=== PATIENT | female | born 1995 | race Caucasian/White ===

== ENCOUNTER → 2017-10-08 | Outpatient (CLI) | payer OTHER | END | disposition home or self-care (01) | LOC: C.LABSPEC 16:05 | PROVIDERS: ATTEND Physician Assistant | DX: N89.8 Other specified noninflammatory disorders of vagina (principal); T19.2XXA Foreign body in vulva and vagina, initial encounter; X58.XXXA Exposure to other specified factors, initial encounter ==

== ENCOUNTER 2025-11-14 07:42 | Inpatient (IN) ==
[2025-11-14] MEDS ORDERED: OXYTOCIN 30 UNITS/NSS 30 UNITS/500 ML BAG IV PRN (08:32)
[2025-11-14] MEDS ORDERED: LIDOCAINE 1% LOCAL 20 ML VIAL INFIL PRN (08:32)
[2025-11-14 08:56] LABS: Hematocrit (blood only) 37.5 % (37.0-47.0); Hemoglobin 13.1 g/dL (12.0-16.0); Mean Corpuscular Hemoglobin 30.6 pg (25.0-34.0); Mean Corpuscular Volume 87.6 fL (80.0-100.0); Platelet Count 188 K/uL (130-400); RDW Standard Deviation 43.8 fL (36.4-46.3); Red Blood Count 4.28 M/uL (4.20-5.40); White Blood Count 9.73 K/ul (4.8-10.8)
--- NOTE | 2025-11-14 08:58 | History & Physical Report ---
Date of Service November 14, 2025 Assessment & Plan (1) Encounter for induction of labor: Plan: Pt is a 30yo who presents for scheduled IOL for post-dates. Lazaro balloon able to be placed during cervical exam - //hi; will titrate pitocin up to [address] AROM when able Epidural PRN GBS neg, RH pos, RI Anticipate Admission and Anticipated Discharge Date Admission Date: November 14, 2025 History of Present Illness Chief Complaint: Scheduled induction of labor Primary Care Provider: Arturo Kennedy DO Patient is a 30yo who presents at 41w1d for scheduled induction of labor for post-dates. Pt doing well this morning, no interval concerns since visit yesterday. +FM; denies contractions, bleeding, or leaking fluid. uncomplicated - prior concern for LGA but most recent ultrasound with appropriate growth. Allergies Allergy/AdvReac Type Severity Reaction Status Date / Time No Known Allergies Allergy Verified 11/13/25 13:33 Home Medications Medication Instructions Recorded Confirmed Type [id number] oil PO 04/06/25 11/13/25 History [ Gummy] Patient History Medical History (Updated 11/14/25 @ 09:00 by Pamella Adames MD) Varicella vaccination Surgical History (Updated 04/06/25 @ 10:00 by Nirali Ac RN) No pertinent past surgical history Family History (Updated 04/06/25 @ 09:51 by Nirali Ac RN) Grandmother (Maternal) Diabetes Denies family history of Ovarian cancer Breast cancer Colorectal cancer Social History (Updated 04/06/25 @ 09:57 by Nirali Ac RN) Smoking Status: Never smoker Do You Dip or Chew Tobacco: No; Hx Alcohol Use: No Hx Substance Use: No marital status: marital status details: Jf Hernandes (28) [phone] Current Living Situation: Spouse Current Living Situation Comment: Lives with , no pets current occupational status: employed current occupation: Nurse How many Children do You have: 0 Review of Systems All systems reviewed & are unremarkable except as noted in HPI & below Physical Exam Constitutional: WD/WN, vitals as above healthy appearing Respiratory: normal respiratory effort Psychiatric: Orientation: alert and oriented x 3 Genitourinary: normal external appearance OB Exam Abdomen: + vertex Manual OB Exam: + cervical dilation fingertip, + cervical effacement 50% and + station high OB Exam Monitor Tracing: + external FHT monitor used, + external uterine monitor used and + category I Lazaro balloon placed in normal sterile fashion with cervical exam as above; balloon inflated with 40cc fluid. Pt tolerated well. Results & Data Vital Signs (Past 12 Hours) Vital Signs Pulse BP 11/14/25 08:15 81 131/80 Coding Level of Care Code None Diagnoses Encounter for induction of labor Z34.90
[2025-11-14] MEDS: LACTATED RINGER'S 1,000 ML IV PRN (09:34)
[2025-11-14] MEDS: OXYTOCIN 30 UNITS/NSS 30 UNITS/500 ML BAG IV PRN (09:34)
[2025-11-14] MEDS ORDERED: NALBUPHINE HCL INJ 10 MG/ML AMP IV PRN (17:00)
[2025-11-14] MEDS ORDERED: ROPIVACAINE 0.5% PF 5 MG/ML 20 ML VIAL EPI PRN (17:00)
[2025-11-14] MEDS ORDERED: LIDOCAINE 2% MPF LOCAL 5 ML VIAL EPI PRN (17:00)
[2025-11-14] MEDS ORDERED: NALOXONE HCL 1 MG in SODIUM CHLORIDE 0.9% 1,000 ML IV PRN (17:00)
[2025-11-14] MEDS ORDERED: ONDANSETRON INJ 2 MG/ML 2 ML VIAL IV PRN (17:00)
[2025-11-14] MEDS ORDERED: BUPIVACAINE 0.25% PF 30 ML VIAL EPI PRN (17:00)
[2025-11-14] MEDS ORDERED: SODIUM CHLORIDE 0.9% PF INJ 10 ML VIAL EPI PRN (17:00)
[2025-11-14] MEDS ORDERED: diphenhydrAMINE 50 MG/ML VIAL IV PRN (17:00)
[2025-11-14] MEDS ORDERED: NALOXONE HCL 0.4 MG/1 ML VIAL/CARP IV PRN (17:00)
--- NOTE | 2025-11-14 17:04 | Anesthesiology Consultation ---
Date of Service November 14, 2025 Assessment & Plan (1) Encounter for pre-operative examination: Chart Review Chart Review: Patient NOT seen in Pre Admission Testing and Acceptable Risk for Labor Epidural Consults Requested none History Height/Weight Height: 5 ft 4 in Weight: 79.379 kg Allergies Allergy/AdvReac Type Severity Reaction Status Date / Time No Known Allergies Allergy Verified 11/13/25 13:33 Medications Home Medications Medication Instructions Recorded Confirmed Last Taken vits no.124-ferrous fum 1 tab PO DAILY 11/14/25 11/14/25 Unknown 27 mg iron-folic acid 800 mcg tablet ( Vitamin) Active Medications Generic Name Dose Route Start Last Admin Trade Name Freq PRN Reason Stop Dose Admin Lactated Ringer's 1,000 mls @ 125 mls/hr 11/14/25 08:32 11/14/25 16:46 Lr IV 11/16/25 08:31 999 mls/hr .Q8H PRN Administration L&D Protocol Protocol Oxytocin 30 units in 500 mls @ 6 mls/hr 11/14/25 08:33 11/14/25 14:37 Pitocin 30 Units/Nss IV 11/16/25 08:32 0.36 units/hr .Q24H PRN 6 mls/hr Labor Induction/Augmentation Titration Protocol 0.36 UNITS/HR Past Medical History Medical History (Updated 11/14/25 @ 17:04 by Devendra Romeo MD) Encounter for pre-operative examination Varicella vaccination Exercise / Class Metabolic Activity II 4-5 Yardwork/Stairs/Walk up hill Past Family History Family History Grandmother (Maternal) Diabetes Denies family history of Ovarian cancer Breast cancer Colorectal cancer Past Surgical History Surgical History No pertinent past surgical history Social History Smoking Status: Never smoker Do You Dip or Chew Tobacco: No Hx Alcohol Use: No Hx Substance Use: No Physical Exam Vital Signs Last Vital Signs Temp 36.7 C 11/14/25 12:39 Pulse 94 H 11/14/25 17:33 Resp 18 11/14/25 12:39 BP 142/65 H 11/14/25 17:33 Pulse Ox 95 12/16/25 17:32 Testing Laboratory Results 11/14/25 08:43
[2025-11-14] MEDS: BUPIVACAINE 0.25% PF 30 ML VIAL EPI STA (17:29)
[2025-11-14] MEDS: LIDOCAINE 2%/EPINEPHRINE 1:200,000 20 ML PF EPI STA (17:29)
[2025-11-14] MEDS: BUPIVACAINE 0.25% PF 30 ML VIAL ONE (17:34)
[2025-11-14] MEDS: SODIUM CHLORIDE 0.9% PF INJ 10 ML VIAL EPI STA (17:35)
[2025-11-14] MEDS: fentANYL 2 MCG/ML BUPIVacaine 0.125%-NSS 100ML BAG ONE (17:35)
[2025-11-14] MEDS: SODIUM CHLORIDE 0.9% PF INJ 10 ML VIAL ONE (17:35)
[2025-11-14] MEDS: LIDOCAINE 2%/EPINEPHRINE 1:200,000 20 ML PF ONE (17:35)
[2025-11-14] MEDS: fentANYL 2 MCG/ML BUPIVacaine 0.125%-NSS 100ML BAG EPI PRN (17:49)
--- NOTE | 2025-11-14 18:24 | Labor Progress Brief Note ---
Date of Service November 14, 2025 Subjective Reason For Note: Routine Evaluation Doing well; balloon came out and now comfortable with epidural. Review of Systems All systems reviewed & are unremarkable except as noted in HPI & below Assessment & Plan (1) Encounter for induction of labor: Plan: Pt is a 30yo who presents for scheduled IOL for post-dates. Cvx 6-7/80/-2 - continue pit 2x2 s/p AROM s/p Epidural GBS neg, RH pos, RI Anticipate Admission and Anticipated Discharge Date Admission Date: November 14, 2025 Physical Exam Constitutional: WD/WN, vitals as above healthy appearing Respiratory: normal respiratory effort Psychiatric: Orientation: alert and oriented x 3 Genitourinary: normal external appearance OB Exam Abdomen: + vertex Manual OB Exam: + cervical dilation (6-7), + cervical effacement 80% and + station -2 OB Exam Monitor Tracing: + external FHT monitor used, + external uterine monitor used and + category I Results & Data Vital Signs (Past 12 Hours) Vital Signs Temp Pulse Resp BP Pulse Ox 11/14/25 18:21 88 93 11/14/25 18:17 93 H 94 11/14/25 18:12 87 96 11/14/25 18:10 86 130/80 11/14/25 18:07 97 H 95 11/14/25 18:02 90 94 11/14/25 17:57 84 95 11/14/25 17:52 95 H 128/79 95 11/14/25 17:50 85 124/68 11/14/25 17:48 76 124/58 L 11/14/25 17:47 86 95 11/14/25 17:46 176 H 172/93 H 11/14/25 17:44 84 122/70 11/14/25 17:42 96 11/14/25 17:42 88 11/14/25 17:42 83 138/91 11/14/25 17:40 82 134/68 11/14/25 17:38 84 129/63 11/14/25 17:37 85 95 11/14/25 17:36 92 H 129/64 11/14/25 17:34 92 H 134/56 L 11/14/25 17:33 94 H 142/65 H 11/14/25 17:32 91 H 123/6 L 95 11/14/25 17:30 92 H 116/86 11/14/25 17:28 98 H 119/74 11/14/25 17:27 98 H 95 11/14/25 17:22 113 H 96 11/14/25 17:17 114 H 96 11/14/25 17:12 103 H 96 11/14/25 17:11 96 H 94 11/14/25 17:06 103 H 95 11/14/25 17:05 92 H 143/75 H 11/14/25 16:05 18 11/14/25 16:05 18 11/14/25 12:39 36.7 C 81 18 128/73 11/14/25 08:15 36.7 C 20 11/14/25 08:15 81 131/80 Coding Level of Care Code None Diagnoses Encounter for induction of labor Z34.90
[2025-11-14] MEDS: miSOPROStol 25 MCG TAB PV ONE (18:43)
[2025-11-14] MEDS: ACETAMINOPHEN 325 MG TAB PO PRN (22:41)
[2025-11-14] MEDS ORDERED: NURSING L&D Epidural Breakthrough Pain Update ONE (22:45)
--- NOTE | 2025-11-15 04:10 | Anesthesia Procedure Note ---
Date of Service November 15, 2025 Anesthesia Epidural Re-Dose Vital Signs Temp Pulse Resp BP Pulse Ox 36.8 C 97 H 18 123/63 95 11/15/25 02:10 11/15/25 04:08 11/15/25 02:10 11/15/25 04:08 11/15/25 04:07 Notes Pain Intensity: 5 Dilatation (cm): 7.0 Effacement (%): 90 Called by nursing to evaluate epidural as the patient is having increased pain. The epidural was re-dosed with the following medications (all medications via epidural route) after negative aspiration of the epidural catheter for CSF/HEME. 5ml of 2% LIdocaine mixed with 5ml of 0.5% ropivicaine in divided doses. After Epidural Re-Dose Mental Status: alert / awake / arousable Pain: improving with treatment Airway Patency, RR, SpO2: stable & adequate BP & HR: stable & adequate
[2025-11-15] MEDS ORDERED: ceFAZolin 3000MG 3,000 MG/72.5 ML BAG IV ONE (06:00)
--- NOTE | 2025-11-15 08:43 | Labor Progress Brief Note ---
Date of Service November 15, 2025 Subjective 30yo with SIUP @ 41w2d, . Course of IOL reviewed. Patient has epidural but presently c/o significant pain with contractions. She is concerned as she reports that her twin sister got to 9cm and had a , and this baby is known to be LGA. Assessment & Plan (1) Encounter for induction of labor: Plan: Suspect CPD at this point and recommended . Patient and FOB agreeable. Consent completed, will deliver as soon as room available for surgery, and meanwhile pit off. Anesthesiologist discussing options with patient in room now. Admission and Anticipated Discharge Date Admission Date: November 14, 2025 Physical Exam Genitourinary: Cervix 5cm, 90% with puffiness / edema worst at 12 o'clock, station 0 but with significant molding and caput that reaches below station. Bricelyn Q2 with adequate MVU FHT 160 mod abiel +acc -dec Results & Data Vital Signs (Past 12 Hours) Vital Signs Temp Pulse Resp BP Pulse Ox O2 Del Method 11/15/25 08:35 88 136/83 11/15/25 08:32 79 95 11/15/25 08:27 78 95 11/15/25 08:22 79 94 11/15/25 08:21 78 160/91 H 11/15/25 08:17 78 95 11/15/25 08:12 74 95 11/15/25 08:07 75 94 11/15/25 08:05 92 H 135/89 11/15/25 08:02 83 94 11/15/25 07:57 109 H 95 11/15/25 07:52 87 97 11/15/25 07:49 85 122/71 11/15/25 07:47 91 H 95 11/15/25 07:42 82 95 11/15/25 07:37 92 H 94 11/15/25 07:36 Room Air 11/15/25 07:36 85 120/63 11/15/25 07:32 89 95 11/15/25 07:30 18 11/15/25 07:30 18 11/15/25 07:27 85 94 11/15/25 07:22 87 94 11/15/25 07:20 95 H 106/75 11/15/25 07:17 104 H 96 11/15/25 07:12 114 H 95 11/15/25 07:07 86 95 11/15/25 07:05 86 132/78 11/15/25 07:02 86 96 11/15/25 07:00 18 11/15/25 07:00 18 11/15/25 06:57 86 96 11/15/25 06:52 91 H 95 11/15/25 06:49 82 133/71 11/15/25 06:47 88 96 11/15/25 06:42 92 H 95 11/15/25 06:37 82 95 11/15/25 06:34 86 134/65 11/15/25 06:32 102 H 94 11/15/25 06:30 18 11/15/25 06:30 18 11/15/25 06:27 94 H 94 11/15/25 06:22 95 H 95 11/15/25 06:21 96 H 124/72 11/15/25 06:17 100 H 95 11/15/25 06:12 83 95 11/15/25 06:07 83 95 11/15/25 06:04 82 137/78 11/15/25 06:02 87 96 11/15/25 06:00 18 11/15/25 06:00 18 11/15/25 05:57 77 95 11/15/25 05:52 78 94 11/15/25 05:49 79 136/67 11/15/25 05:47 77 94 11/15/25 05:42 77 96 11/15/25 05:37 77 95 11/15/25 05:35 98.2 F 11/15/25 05:34 80 124/63 11/15/25 05:32 85 96 11/15/25 05:27 82 95 11/15/25 05:22 85 95 11/15/25 05:20 83 129/70 11/15/25 05:17 87 95 11/15/25 05:12 86 95 11/15/25 05:07 89 94 11/15/25 05:06 96 H 120/78 11/15/25 05:02 90 94 11/15/25 05:00 18 11/15/25 05:00 18 11/15/25 04:57 103 H 95 11/15/25 04:52 99 H 94 11/15/25 04:50 81 126/73 11/15/25 04:47 78 95 11/15/25 04:42 82 95 11/15/25 04:37 81 94 11/15/25 04:32 86 129/77 93 11/15/25 04:30 18 11/15/25 04:30 18 11/15/25 04:27 75 95 11/15/25 04:26 78 122/72 11/15/25 04:22 80 94 11/15/25 04:20 83 133/76 11/15/25 04:18 95 H 134/77 11/15/25 04:17 89 95 11/15/25 04:16 90 126/70 11/15/25 04:14 100 H 125/70 11/15/25 04:12 114 H 95 11/15/25 04:10 98.6 F 111 H 18 112/68 11/15/25 04:08 97 H 123/63 11/15/25 04:07 99 H 95 11/15/25 04:06 96 H 114/64 11/15/25 04:04 90 128/72 11/15/25 04:02 95 11/15/25 04:02 86 11/15/25 04:02 86 120/70 11/15/25 04:00 85 18 106/59 L 11/15/25 03:57 90 96 11/15/25 03:55 84 111/57 L 11/15/25 03:52 88 95 11/15/25 03:47 91 H 95 11/15/25 03:42 87 95 11/15/25 03:39 81 109/59 L 11/15/25 03:37 80 95 11/15/25 03:32 85 95 11/15/25 03:30 18 11/15/25 03:30 18 11/15/25 03:27 79 95 11/15/25 03:25 84 107/55 L 11/15/25 03:22 78 95 11/15/25 03:17 79 94 11/15/25 03:12 78 95 11/15/25 03:10 77 114/56 L 11/15/25 03:07 74 95 11/15/25 03:02 73 94 11/15/25 02:57 79 96 11/15/25 02:55 78 108/60 11/15/25 02:52 75 95 11/15/25 02:47 74 95 11/15/25 02:42 75 96 11/15/25 02:40 71 121/65 11/15/25 02:37 74 95 11/15/25 02:32 78 95 11/15/25 02:27 75 94 11/15/25 02:24 73 114/67 11/15/25 02:22 71 94 11/15/25 02:17 75 94 11/15/25 02:12 77 94 11/15/25 02:10 18 11/15/25 02:10 98.2 F 18 11/15/25 02:07 87 95 11/15/25 02:02 86 95 11/15/25 02:00 18 11/15/25 02:00 18 11/15/25 01:57 76 95 11/15/25 01:54 69 126/70 11/15/25 01:52 71 93 11/15/25 01:47 68 94 11/15/25 01:42 77 94 11/15/25 01:39 73 128/71 11/15/25 01:37 71 94 11/15/25 01:32 71 94 11/15/25 01:30 18 11/15/25 01:30 18 11/15/25 01:27 76 94 11/15/25 01:25 76 128/73 11/15/25 01:22 78 94 11/15/25 01:17 75 94 11/15/25 01:12 74 95 11/15/25 01:09 72 121/71 11/15/25 01:07 76 94 11/15/25 01:02 75 95 11/15/25 01:00 18 11/15/25 01:00 18 11/15/25 00:57 74 95 11/15/25 00:54 75 129/74 11/15/25 00:52 72 94 11/15/25 00:47 82 95 11/15/25 00:45 18 11/15/25 00:45 99.0 F 18 11/15/25 00:42 86 95 11/15/25 00:41 96 H 114/77 11/15/25 00:37 97 H 95 11/15/25 00:32 80 95 11/15/25 00:30 18 11/15/25 00:30 18 11/15/25 00:27 86 94 11/15/25 00:24 84 108/53 L 11/15/25 00:22 85 95 11/15/25 00:17 88 95 11/15/25 00:12 94 H 95 11/15/25 00:09 94 H 111/52 L 11/15/25 00:07 94 H 95 11/15/25 00:02 95 H 94 11/15/25 00:00 18 11/15/25 00:00 18 11/14/25 23:57 97 H 95 11/14/25 23:54 96 H 102/56 L 11/14/25 23:52 95 H 95 11/14/25 23:47 89 96 11/14/25 23:42 92 H 97 11/14/25 23:39 95 H 114/58 L 11/14/25 23:37 91 H 97 11/14/25 23:32 92 H 97 11/14/25 23:30 18 11/14/25 23:30 18 11/14/25 23:27 94 H 97 11/14/25 23:25 98.2 F 98 H 18 120/56 L 11/14/25 23:22 109 H 96 11/14/25 23:17 109 H 98 11/14/25 23:12 109 H 98 11/14/25 23:11 109 H 121/65 11/14/25 23:07 108 H 97 11/14/25 23:02 118 H 96 11/14/25 23:00 18 11/14/25 23:00 18 11/14/25 22:57 158 H 98 11/14/25 22:56 127 H 144/67 H 11/14/25 22:52 101 H 98 11/14/25 22:47 95 H 99 11/14/25 22:42 105 H 98 11/14/25 22:40 88 123/71 11/14/25 22:37 92 H 99 11/14/25 22:32 97 H 98 11/14/25 22:30 18 11/14/25 22:30 18 11/14/25 22:27 92 H 97 11/14/25 22:25 90 128/66 11/14/25 22:22 80 96 11/14/25 22:17 79 96 11/14/25 22:12 74 95 11/14/25 22:09 82 120/65 11/14/25 22:07 75 95 11/14/25 22:02 75 96 11/14/25 22:00 18 11/14/25 22:00 18 11/14/25 21:57 75 96 11/14/25 21:55 73 123/66 11/14/25 21:52 79 95 11/14/25 21:47 76 95 11/14/25 21:42 78 96 11/14/25 21:39 71 123/66 11/14/25 21:37 73 96 11/14/25 21:32 78 95 11/14/25 21:30 18 11/14/25 21:30 18 11/14/25 21:27 77 96 11/14/25 21:25 77 114/60 11/14/25 21:22 79 96 11/14/25 21:17 77 95 11/14/25 21:12 71 95 11/14/25 21:09 75 122/66 11/14/25 21:07 80 95 11/14/25 21:03 18 11/14/25 21:03 98.8 F 18 11/14/25 21:02 80 94 11/14/25 21:00 18 11/14/25 21:00 18 11/14/25 20:57 90 95 11/14/25 20:55 81 109/62 11/14/25 20:52 87 93 11/14/25 20:47 78 93 11/14/25 20:42 79 94 11/14/25 20:40 82 110/58 L Coding Level of Care Code None Diagnoses Encounter for induction of labor Z34.90
[2025-11-15] MEDS ORDERED: LIDOCAINE 2%/EPINEPHRINE 1:200,000 20 ML PF ONE (08:45)
[2025-11-15] MEDS ORDERED: OXYTOCIN 10 UNITS/ML VIAL ONE ×3 (08:54)
[2025-11-15] MEDS ORDERED: MoRPHine SULFATE PF 1 MG/ML 10 ML AMP/VIAL ONE (08:55)
[2025-11-15] MEDS: ACETAMINOPHEN 500 MG TAB ONE (08:56)
[2025-11-15] MEDS: CITRIC ACID/SODIUM CITRATE 15 ML UDC ONE (09:10)
--- NOTE | 2025-11-15 09:15 | Communication Note ---
Date of Service: November 15, 2025 IOL--> for failure to progress. epidural has been inconsistent during labor, however, appears to be in correct position. checked with ice with low level and sensory intact at T10. Legs with decreased motor. dosed with 5cc lidocaine with inadequate relief of contraction pain. will plan to proceed to under spinal given low epidural level not responsive bolus.
[2025-11-15] MEDS: ACETAMINOPHEN 500 MG TAB PO ONE (09:16)
[2025-11-15] MEDS: ceFAZolin 3000MG 3,000 MG/72.5 ML BAG IV ONE (09:17)
[2025-11-15] MEDS: CITRIC ACID/SODIUM CITRATE 15 ML UDC PO ONE (09:45)
[2025-11-15] MEDS: AZITHROMYCIN 500 MG/255 ML BAG IV ONE (10:04)
[2025-11-15] MEDS ORDERED: NALOXONE HCL 1 MG in SODIUM CHLORIDE 0.9% 1,000 ML IV PRN (10:16)
[2025-11-15] MEDS ORDERED: NALOXONE HCL 0.4 MG/1 ML VIAL/CARP IV PRN (10:16)
[2025-11-15] MEDS ORDERED: NALBUPHINE HCL INJ 10 MG/ML AMP IV PRN (10:16)
[2025-11-15] MEDS ORDERED: diphenhydrAMINE 50 MG/ML VIAL IV PRN (10:16)
[2025-11-15] MEDS ORDERED: LACTATED RINGER'S 500 ML IV PRN (10:16)
[2025-11-15] MEDS ORDERED: ONDANSETRON INJ 2 MG/ML 2 ML VIAL IV PRN (10:16)
[2025-11-15] MEDS ORDERED: ONDANSETRON INJ 2 MG/ML 2 ML VIAL ONE (10:19)
[2025-11-15] MEDS ORDERED: diphenhydrAMINE 50 MG/ML VIAL ONE (10:21)
[2025-11-15] MEDS ORDERED: NO NARCOTICS OR SEDATIVES SCH (10:30)
[2025-11-15] MEDS ORDERED: DC INTRASPINAL MORPHINE SCH (10:30)
--- NOTE | 2025-11-15 10:38 | Operative Report ---
PG Post Operative Report Pre & Post Diagnosis Operation Date: 11/15/25 09:00 Pre-Op Diagnosis: Failure to progress. Large for gestational age. Suspected CPD Post-Op Diagnosis: Failure to progress. Large for gestational age. Suspected CPD Delivery of live male child at 1011 I identified the patient and participated in the time-out.: Yes Procedure Operation Date: 11/15/25 09:00 Actual Procedures Low Transverse Section Surgeon Torri Delatorre MD Grease Renderer Lian Chau Estimated Blood Loss 904 (QBL) Findings Consistent with Post-Op Diagnosis Specimens Placenta, cord blood Anesthesia Type Spinal Complications none Disposition Accompanied Patient To Recovery: Yes Disposition: L&D Description of Procedure The patient was placed operating table in the supine position with a leftward tilt. A pillow was placed according to diamond sizer and sorter instructions. She was prepped and draped in standard sterile fashion. The anesthetic was tested and found to be adequate. A time-out was held, identifying correct patient, procedure, positioning and preoperative antibiotics. There were no concerns. A Pfannenstiel skin incision was made with a knife and taken down to the underlying layer of fascia. The fascia was incised in the midline with the knife and taken out laterally with scissors. The superior edge of the fascial incision was grasped, elevated and dissected off the underlying rectus both superiorly and inferiorly. The muscles were bluntly in the midline. The peritoneum was entered bluntly. The incision was then stretched. The bladder retractor was placed. The vesicouterine peritoneum was identified, entered with scissors and taken out laterally with scissors. The bladder flap was created digitally. A hysterotomy incision was created transversely in the lower uterine segment, final entry being accomplished in a blunt manner with the slasher operator's fingers. Stained amniotic fluid was encountered. The slasher operator's hand was used to elevate the head to the hysterotomy. The head was delivered using mild fundal pressure, and the shoulders and body followed without difficulty. The cord was clamped and cut and the infant was then handed off to the awaiting marine fireman. Cord blood was obtained. The pillow was deflated. The placenta was Manually extracted. The uterus was exteriorized and cleared of all clot and debris with moistened laparotomy sponges. The hysterotomy incision was repaired in two layers, the first in a running locked layer, the second in an imbricating layer. The ovaries and tubes were seen to be normal bilaterally. The uterus was gently replaced in the abdomen, and the gutters were cleared of clot and debris. A final inspection of the hysterotomy revealed good hemostasis. The rectus muscles were allowed to reapproximate naturally. The fascia was then reapproximated with 1 Vicryl in a running nonlocked manner. The fascia was examined and found to be free of defect following closure. The subcutaneous tissue was copiously irrigated and reapproximated with 0-chromic, then the skin edges were closed with 4-0 monocryl in a subcuticular fashion. A dermabond dressing was applied. The staton was found to be draining clear yellow urine at completion of the procedure. I attest to the content of the Intraoperative Record and any orders documented therein. Any exceptions are noted below. I attest to the content of the Intraoperative Record and any orders documented therein. Any exceptions are noted below. OB Procedure Charges 85308
[2025-11-15] MEDS: LACTATED RINGER'S 1,000 ML IV SCH ×3 (10:46→19:21)
[2025-11-15] MEDS ORDERED: HYDROCORTISONE ACETATE 25 MG SUPP PR PRN (11:03)
[2025-11-15] MEDS ORDERED: SENNA 8.6 MG TAB PO PRN (11:03)
[2025-11-15] MEDS ORDERED: MAGNESIUM HYDROXIDE SUSP 30 ML UDC PO PRN (11:03)
[2025-11-15] MEDS ORDERED: BENZOCAINE 20% SPRY 85 APPLN/85 GM CAN EXT PRN (11:03)
[2025-11-15] MEDS ORDERED: CALCIUM CARBONATE 500 MG CHEWABLE TAB PO PRN (11:03)
[2025-11-15] MEDS: KETOROLAC 30 MG/ML VIAL IV SCH (11:13)
[2025-11-15] MEDS: KETOROLAC 30 MG/ML VIAL ONE (11:15)
[2025-11-15] MEDS: DIPHTHER/TETAN/PERTUS Vaccine (Tdap, Adol/Adult) 0.5mL IM ONE (11:40)
[2025-11-15] MEDS: HYDROmorphone INJ 0.5 MG/0.5 ML SYR IV PRN (11:47)
[2025-11-15] MEDS: OXYTOCIN 20 UNITS/LR 1,002 ML IV SCH (11:51)
[2025-11-15 13:33] LABS: Hematocrit (blood only) 33.2 % (37.0-47.0); Hemoglobin 11.5 g/dL (12.0-16.0)
--- NOTE | 2025-11-15 15:12 | Anesthesiology Progress Note ---
Date of Service November 15, 2025 Anesthesia Post Procedure Vital Signs Vital Signs: Temp Pulse Pulse Resp BP BP Pulse Ox 11/15/25 15:11 82 11/15/25 15:06 96 11/15/25 15:06 79 11/15/25 15:01 96 11/15/25 15:01 83 11/15/25 14:56 96 11/15/25 14:56 86 11/15/25 14:51 97 11/15/25 14:51 81 11/15/25 14:46 96 11/15/25 14:46 80 11/15/25 14:43 83 11/15/25 14:43 120/59 L 11/15/25 14:41 96 11/15/25 14:41 80 11/15/25 14:40 16 96 11/15/25 14:36 96 11/15/25 14:36 81 11/15/25 14:31 96 11/15/25 14:31 81 11/15/25 14:26 96 11/15/25 14:26 81 11/15/25 14:21 96 11/15/25 14:21 84 11/15/25 14:16 87 96 11/15/25 14:13 90 132/76 11/15/25 14:11 89 96 11/15/25 14:06 98 H 96 11/15/25 14:01 99 H 96 11/15/25 13:56 104 H 96 11/15/25 13:51 87 96 11/15/25 13:46 91 H 95 11/15/25 13:45 16 95 11/15/25 13:45 36.9 C 90 16 124/72 95 11/15/25 13:42 90 124/72 11/15/25 13:41 85 95 11/15/25 13:36 84 95 11/15/25 13:31 91 H 95 11/15/25 13:26 93 H 95 11/15/25 13:21 90 96 11/15/25 13:16 91 H 96 11/15/25 13:12 92 H 127/69 11/15/25 13:11 98 H 95 11/15/25 13:06 102 H 96 11/15/25 13:01 90 96 11/15/25 12:58 105 H 94 11/15/25 12:56 101 H 96 11/15/25 12:51 98 H 96 11/15/25 12:49 90 94 11/15/25 12:46 92 H 97 11/15/25 12:42 102 H 109/67 11/15/25 12:41 105 H 95 11/15/25 12:40 36.9 C 94 H 18 109/67 11/15/25 12:36 85 95 11/15/25 12:31 96 H 95 11/15/25 12:26 98 H 96 11/15/25 12:21 88 96 11/15/25 12:16 90 96 11/15/25 12:12 89 114/55 L 11/15/25 12:11 83 96 11/15/25 12:10 36.8 C 90 16 114/55 L 96 11/15/25 12:06 88 96 11/15/25 12:01 86 95 11/15/25 11:56 88 95 11/15/25 11:51 93 H 95 11/15/25 11:46 89 96 11/15/25 11:41 96 11/15/25 11:41 90 11/15/25 11:41 88 118/57 L 11/15/25 11:40 36.9 C 89 18 118/57 L 96 11/15/25 11:36 87 96 11/15/25 11:31 97 11/15/25 11:31 96 H 11/15/25 11:31 89 109/53 L 11/15/25 11:30 36.9 C 90 18 109/53 L 97 11/15/25 11:26 91 H 96 11/15/25 11:21 96 11/15/25 11:21 88 11/15/25 11:21 100 H 117/62 11/15/25 11:20 36.9 C 96 H 20 117/62 96 11/15/25 11:16 94 H 97 11/15/25 11:11 97 11/15/25 11:11 90 11/15/25 11:11 86 117/64 11/15/25 11:10 36.5 C 100 H 18 117/64 97 11/15/25 11:06 98 H 98 11/15/25 11:01 98 11/15/25 11:01 96 H 11/15/25 11:01 101 H 119/56 L 11/15/25 11:00 36.5 C 101 H 16 119/56 L 98 11/15/25 10:58 104 H 129/52 L 11/15/25 10:56 109 H 100 11/15/25 10:51 120 H 100 11/15/25 10:50 36.4 C L 112 H 16 129/52 L 99 11/15/25 10:46 111 H 98 11/15/25 10:42 114 H 89/50 L 11/15/25 10:41 117 H 88/56 L 98 11/15/25 10:40 36.4 C L 117 H 18 88/56 L 98 11/15/25 09:37 87 94 11/15/25 09:35 83 152/84 H 11/15/25 09:32 84 94 11/15/25 09:31 86 144/91 H 11/15/25 09:30 18 11/15/25 09:30 18 11/15/25 09:27 84 94 11/15/25 09:25 83 162/107 H 11/15/25 09:22 84 94 11/15/25 09:21 85 144/95 H 11/15/25 09:17 94 11/15/25 09:17 89 11/15/25 09:17 84 150/73 H 11/15/25 09:16 83 158/90 H 11/15/25 09:12 89 94 11/15/25 09:11 83 160/100 H 11/15/25 09:07 81 95 11/15/25 09:06 85 182/78 H 11/15/25 09:02 86 20 94 11/15/25 09:01 93 H 153/102 H 11/15/25 08:58 96 H 143/97 H 11/15/25 08:57 92 H 95 11/15/25 08:52 95 H 95 11/15/25 08:49 90 174/101 H 11/15/25 08:47 90 95 11/15/25 08:42 83 95 11/15/25 08:37 86 95 11/15/25 08:35 88 136/83 11/15/25 08:32 79 95 11/15/25 08:30 20 11/15/25 08:30 37.2 C 20 11/15/25 08:27 78 95 11/15/25 08:22 79 94 11/15/25 08:21 78 160/91 H 11/15/25 08:17 78 95 11/15/25 08:12 74 95 11/15/25 08:07 75 94 11/15/25 08:05 92 H 135/89 11/15/25 08:02 83 94 11/15/25 07:57 109 H 95 11/15/25 07:52 87 97 11/15/25 07:49 85 122/71 11/15/25 07:47 91 H 95 11/15/25 07:42 82 95 11/15/25 07:37 92 H 94 11/15/25 07:36 11/15/25 07:36 85 120/63 11/15/25 07:32 89 95 11/15/25 07:30 18 11/15/25 07:30 18 11/15/25 07:27 85 94 11/15/25 07:22 87 94 11/15/25 07:20 95 H 106/75 11/15/25 07:17 104 H 96 11/15/25 07:12 114 H 95 11/15/25 07:07 86 95 11/15/25 07:05 86 132/78 11/15/25 07:02 86 96 11/15/25 07:00 18 11/15/25 07:00 18 11/15/25 06:57 86 96 11/15/25 06:52 91 H 95 11/15/25 06:49 82 133/71 11/15/25 06:47 88 96 11/15/25 06:42 92 H 95 11/15/25 06:37 82 95 11/15/25 06:34 86 134/65 11/15/25 06:32 102 H 94 11/15/25 06:30 18 11/15/25 06:30 18 11/15/25 06:27 94 H 94 11/15/25 06:22 95 H 95 11/15/25 06:21 96 H 124/72 11/15/25 06:17 100 H 95 11/15/25 06:12 83 95 11/15/25 06:07 83 95 11/15/25 06:04 82 137/78 11/15/25 06:02 87 96 11/15/25 06:00 18 11/15/25 06:00 18 11/15/25 05:57 77 95 11/15/25 05:52 78 94 11/15/25 05:49 79 136/67 11/15/25 05:47 77 94 11/15/25 05:42 77 96 11/15/25 05:37 77 95 11/15/25 05:35 36.8 C 11/15/25 05:34 80 124/63 11/15/25 05:32 85 96 11/15/25 05:27 82 95 11/15/25 05:22 85 95 11/15/25 05:20 83 129/70 11/15/25 05:17 87 95 11/15/25 05:12 86 95 11/15/25 05:07 89 94 11/15/25 05:06 96 H 120/78 11/15/25 05:02 90 94 11/15/25 05:00 18 11/15/25 05:00 18 11/15/25 04:57 103 H 95 11/15/25 04:52 99 H 94 11/15/25 04:50 81 126/73 11/15/25 04:47 78 95 11/15/25 04:42 82 95 11/15/25 04:37 81 94 11/15/25 04:32 86 129/77 93 11/15/25 04:30 18 11/15/25 04:30 18 11/15/25 04:27 75 95 11/15/25 04:26 78 122/72 11/15/25 04:22 80 94 11/15/25 04:20 83 133/76 11/15/25 04:18 95 H 134/77 11/15/25 04:17 89 95 11/15/25 04:16 90 126/70 11/15/25 04:14 100 H 125/70 11/15/25 04:12 114 H 95 11/15/25 04:10 37.0 C 111 H 18 112/68 11/15/25 04:08 97 H 123/63 11/15/25 04:07 99 H 95 11/15/25 04:06 96 H 114/64 11/15/25 04:04 90 128/72 11/15/25 04:02 95 11/15/25 04:02 86 11/15/25 04:02 86 120/70 11/15/25 04:00 85 18 106/59 L 11/15/25 03:57 90 96 11/15/25 03:55 84 111/57 L 11/15/25 03:52 88 95 11/15/25 03:47 91 H 95 11/15/25 03:42 87 95 11/15/25 03:39 81 109/59 L 11/15/25 03:37 80 95 11/15/25 03:32 85 95 11/15/25 03:30 18 11/15/25 03:30 18 11/15/25 03:27 79 95 11/15/25 03:25 84 107/55 L 11/15/25 03:22 78 95 11/15/25 03:17 79 94 11/15/25 03:12 78 95 11/15/25 03:10 77 114/56 L 11/15/25 03:07 74 95 11/15/25 03:02 73 94 11/15/25 02:57 79 96 11/15/25 02:55 78 108/60 11/15/25 02:52 75 95 11/15/25 02:47 74 95 11/15/25 02:42 75 96 11/15/25 02:40 71 121/65 11/15/25 02:37 74 95 11/15/25 02:32 78 95 11/15/25 02:27 75 94 11/15/25 02:24 73 114/67 11/15/25 02:22 71 94 11/15/25 02:17 75 94 11/15/25 02:12 77 94 11/15/25 02:10 18 11/15/25 02:10 36.8 C 18 11/15/25 02:07 87 95 11/15/25 02:02 86 95 11/15/25 02:00 18 11/15/25 02:00 18 11/15/25 01:57 76 95 11/15/25 01:54 69 126/70 11/15/25 01:52 71 93 11/15/25 01:47 68 94 11/15/25 01:42 77 94 11/15/25 01:39 73 128/71 11/15/25 01:37 71 94 11/15/25 01:32 71 94 11/15/25 01:30 18 11/15/25 01:30 18 11/15/25 01:27 76 94 11/15/25 01:25 76 128/73 11/15/25 01:22 78 94 11/15/25 01:17 75 94 11/15/25 01:12 74 95 11/15/25 01:09 72 121/71 11/15/25 01:07 76 94 11/15/25 01:02 75 95 11/15/25 01:00 18 11/15/25 01:00 18 11/15/25 00:57 74 95 11/15/25 00:54 75 129/74 11/15/25 00:52 72 94 11/15/25 00:47 82 95 11/15/25 00:45 18 11/15/25 00:45 37.2 C 18 11/15/25 00:42 86 95 11/15/25 00:41 96 H 114/77 11/15/25 00:37 97 H 95 11/15/25 00:32 80 95 11/15/25 00:30 18 11/15/25 00:30 18 11/15/25 00:27 86 94 11/15/25 00:24 84 108/53 L 11/15/25 00:22 85 95 11/15/25 00:17 88 95 11/15/25 00:12 94 H 95 11/15/25 00:09 94 H 111/52 L 11/15/25 00:07 94 H 95 11/15/25 00:02 95 H 94 11/15/25 00:00 18 11/15/25 00:00 18 11/14/25 23:57 97 H 95 11/14/25 23:54 96 H 102/56 L 11/14/25 23:52 95 H 95 11/14/25 23:47 89 96 11/14/25 23:42 92 H 97 11/14/25 23:39 95 H 114/58 L 11/14/25 23:37 91 H 97 11/14/25 23:32 92 H 97 11/14/25 23:30 18 11/14/25 23:30 18 11/14/25 23:27 94 H 97 11/14/25 23:25 36.8 C 98 H 18 120/56 L 11/14/25 23:22 109 H 96 11/14/25 23:17 109 H 98 11/14/25 23:12 109 H 98 11/14/25 23:11 109 H 121/65 11/14/25 23:07 108 H 97 11/14/25 23:02 118 H 96 11/14/25 23:00 18 11/14/25 23:00 18 11/14/25 22:57 158 H 98 11/14/25 22:56 127 H 144/67 H 11/14/25 22:52 101 H 98 11/14/25 22:47 95 H 99 11/14/25 22:42 105 H 98 11/14/25 22:40 88 123/71 11/14/25 22:37 92 H 99 11/14/25 22:32 97 H 98 11/14/25 22:30 18 11/14/25 22:30 18 11/14/25 22:27 92 H 97 11/14/25 22:25 90 128/66 11/14/25 22:22 80 96 11/14/25 22:17 79 96 11/14/25 22:12 74 95 11/14/25 22:09 82 120/65 11/14/25 22:07 75 95 11/14/25 22:02 75 96 11/14/25 22:00 18 11/14/25 22:00 18 11/14/25 21:57 75 96 11/14/25 21:55 73 123/66 11/14/25 21:52 79 95 11/14/25 21:47 76 95 11/14/25 21:42 78 96 11/14/25 21:39 71 123/66 11/14/25 21:37 73 96 11/14/25 21:32 78 95 11/14/25 21:30 18 11/14/25 21:30 18 11/14/25 21:27 77 96 11/14/25 21:25 77 114/60 11/14/25 21:22 79 96 11/14/25 21:17 77 95 11/14/25 21:12 71 95 11/14/25 21:09 75 122/66 11/14/25 21:07 80 95 11/14/25 21:03 18 11/14/25 21:03 37.1 C 18 11/14/25 21:02 80 94 11/14/25 21:00 18 11/14/25 21:00 18 11/14/25 20:57 90 95 11/14/25 20:55 81 109/62 11/14/25 20:52 87 93 11/14/25 20:47 78 93 11/14/25 20:42 79 94 11/14/25 20:40 82 110/58 L 11/14/25 20:37 88 94 11/14/25 20:32 77 94 11/14/25 20:30 18 11/14/25 20:30 18 11/14/25 20:27 83 94 11/14/25 20:26 80 107/63 11/14/25 20:22 83 94 11/14/25 20:17 90 95 11/14/25 20:12 83 95 11/14/25 20:10 96 H 149/87 H 11/14/25 20:07 89 95 11/14/25 20:02 77 94 11/14/25 20:00 18 11/14/25 20:00 18 11/14/25 19:57 76 95 11/14/25 19:56 70 124/79 11/14/25 19:52 75 94 11/14/25 19:47 76 95 11/14/25 19:42 75 95 11/14/25 19:39 73 116/67 11/14/25 19:37 77 95 11/14/25 19:32 76 95 11/14/25 19:30 18 11/14/25 19:30 18 11/14/25 19:27 78 95 11/14/25 19:24 73 120/73 11/14/25 19:22 72 95 11/14/25 19:17 84 95 11/14/25 19:12 79 96 11/14/25 19:10 18 11/14/25 19:10 36.8 C 18 11/14/25 19:07 90 93 11/14/25 19:02 79 93 11/14/25 18:57 82 95 11/14/25 18:54 83 108/55 L 11/14/25 18:52 84 93 11/14/25 18:47 81 94 11/14/25 18:42 85 94 11/14/25 18:40 82 114/67 11/14/25 18:37 84 94 11/14/25 18:32 86 94 11/14/25 18:27 83 93 11/14/25 18:25 82 124/56 L 11/14/25 18:22 92 H 93 11/14/25 18:21 88 93 11/14/25 18:17 93 H 94 11/14/25 18:12 87 96 11/14/25 18:10 86 130/80 11/14/25 18:07 97 H 95 11/14/25 18:02 90 94 11/14/25 17:57 84 95 11/14/25 17:52 95 H 128/79 95 11/14/25 17:50 85 124/68 11/14/25 17:48 76 124/58 L 11/14/25 17:47 86 95 11/14/25 17:46 176 H 172/93 H 11/14/25 17:44 84 122/70 11/14/25 17:42 96 11/14/25 17:42 88 11/14/25 17:42 83 138/91 11/14/25 17:40 82 134/68 11/14/25 17:38 84 129/63 11/14/25 17:37 85 95 11/14/25 17:36 92 H 129/64 11/14/25 17:34 92 H 134/56 L 11/14/25 17:33 94 H 142/65 H 11/14/25 17:32 91 H 123/6 L 95 11/14/25 17:30 92 H 116/86 11/14/25 17:28 98 H 119/74 11/14/25 17:27 98 H 95 11/14/25 17:22 113 H 96 11/14/25 17:17 114 H 96 11/14/25 17:12 103 H 96 11/14/25 17:11 96 H 94 11/14/25 17:06 103 H 95 11/14/25 17:05 92 H 143/75 H 11/14/25 16:05 18 11/14/25 16:05 18 O2 Del Method 11/15/25 15:11 11/15/25 15:06 11/15/25 15:06 11/15/25 15:01 11/15/25 15:01 11/15/25 14:56 11/15/25 14:56 11/15/25 14:51 11/15/25 14:51 11/15/25 14:46 11/15/25 14:46 11/15/25 14:43 11/15/25 14:43 11/15/25 14:41 11/15/25 14:41 11/15/25 14:40 11/15/25 14:36 11/15/25 14:36 11/15/25 14:31 11/15/25 14:31 11/15/25 14:26 11/15/25 14:26 11/15/25 14:21 11/15/25 14:21 11/15/25 14:16 11/15/25 14:13 11/15/25 14:11 11/15/25 14:06 11/15/25 14:01 11/15/25 13:56 11/15/25 13:51 11/15/25 13:46 11/15/25 13:45 11/15/25 13:45 Room Air 11/15/25 13:42 11/15/25 13:41 11/15/25 13:36 11/15/25 13:31 11/15/25 13:26 11/15/25 13:21 11/15/25 13:16 11/15/25 13:12 11/15/25 13:11 11/15/25 13:06 11/15/25 13:01 11/15/25 12:58 11/15/25 12:56 11/15/25 12:51 11/15/25 12:49 11/15/25 12:46 11/15/25 12:42 11/15/25 12:41 11/15/25 12:40 11/15/25 12:36 11/15/25 12:31 11/15/25 12:26 11/15/25 12:21 11/15/25 12:16 11/15/25 12:12 11/15/25 12:11 11/15/25 12:10 11/15/25 12:06 11/15/25 12:01 11/15/25 11:56 11/15/25 11:51 11/15/25 11:46 11/15/25 11:41 11/15/25 11:41 11/15/25 11:41 11/15/25 11:40 11/15/25 11:36 11/15/25 11:31 11/15/25 11:31 11/15/25 11:31 11/15/25 11:30 11/15/25 11:26 11/15/25 11:21 11/15/25 11:21 11/15/25 11:21 11/15/25 11:20 11/15/25 11:16 11/15/25 11:11 11/15/25 11:11 11/15/25 11:11 11/15/25 11:10 11/15/25 11:06 11/15/25 11:01 11/15/25 11:01 11/15/25 11:01 11/15/25 11:00 11/15/25 10:58 11/15/25 10:56 11/15/25 10:51 11/15/25 10:50 11/15/25 10:46 11/15/25 10:42 11/15/25 10:41 11/15/25 10:40 11/15/25 09:37 11/15/25 09:35 11/15/25 09:32 11/15/25 09:31 11/15/25 09:30 11/15/25 09:30 11/15/25 09:27 11/15/25 09:25 11/15/25 09:22 11/15/25 09:21 11/15/25 09:17 11/15/25 09:17 11/15/25 09:17 11/15/25 09:16 11/15/25 09:12 11/15/25 09:11 11/15/25 09:07 11/15/25 09:06 11/15/25 09:02 11/15/25 09:01 11/15/25 08:58 11/15/25 08:57 11/15/25 08:52 11/15/25 08:49 11/15/25 08:47 11/15/25 08:42 11/15/25 08:37 11/15/25 08:35 11/15/25 08:32 11/15/25 08:30 11/15/25 08:30 11/15/25 08:27 11/15/25 08:22 11/15/25 08:21 11/15/25 08:17 11/15/25 08:12 11/15/25 08:07 11/15/25 08:05 11/15/25 08:02 11/15/25 07:57 11/15/25 07:52 11/15/25 07:49 11/15/25 07:47 11/15/25 07:42 11/15/25 07:37 11/15/25 07:36 Room Air 11/15/25 07:36 11/15/25 07:32 11/15/25 07:30 11/15/25 07:30 11/15/25 07:27 11/15/25 07:22 11/15/25 07:20 11/15/25 07:17 11/15/25 07:12 11/15/25 07:07 11/15/25 07:05 11/15/25 07:02 11/15/25 07:00 11/15/25 07:00 11/15/25 06:57 11/15/25 06:52 11/15/25 06:49 11/15/25 06:47 11/15/25 06:42 11/15/25 06:37 11/15/25 06:34 11/15/25 06:32 11/15/25 06:30 11/15/25 06:30 11/15/25 06:27 11/15/25 06:22 11/15/25 06:21 11/15/25 06:17 11/15/25 06:12 11/15/25 06:07 11/15/25 06:04 11/15/25 06:02 11/15/25 06:00 11/15/25 06:00 11/15/25 05:57 11/15/25 05:52 11/15/25 05:49 11/15/25 05:47 11/15/25 05:42 11/15/25 05:37 11/15/25 05:35 11/15/25 05:34 11/15/25 05:32 11/15/25 05:27 11/15/25 05:22 11/15/25 05:20 11/15/25 05:17 11/15/25 05:12 11/15/25 05:07 11/15/25 05:06 11/15/25 05:02 11/15/25 05:00 11/15/25 05:00 11/15/25 04:57 11/15/25 04:52 11/15/25 04:50 11/15/25 04:47 11/15/25 04:42 11/15/25 04:37 11/15/25 04:32 11/15/25 04:30 11/15/25 04:30 11/15/25 04:27 11/15/25 04:26 11/15/25 04:22 11/15/25 04:20 11/15/25 04:18 11/15/25 04:17 11/15/25 04:16 11/15/25 04:14 11/15/25 04:12 11/15/25 04:10 11/15/25 04:08 11/15/25 04:07 11/15/25 04:06 11/15/25 04:04 11/15/25 04:02 11/15/25 04:02 11/15/25 04:02 11/15/25 04:00 11/15/25 03:57 11/15/25 03:55 11/15/25 03:52 11/15/25 03:47 11/15/25 03:42 11/15/25 03:39 11/15/25 03:37 11/15/25 03:32 11/15/25 03:30 11/15/25 03:30 11/15/25 03:27 11/15/25 03:25 11/15/25 03:22 11/15/25 03:17 11/15/25 03:12 11/15/25 03:10 11/15/25 03:07 11/15/25 03:02 11/15/25 02:57 11/15/25 02:55 11/15/25 02:52 11/15/25 02:47 11/15/25 02:42 11/15/25 02:40 11/15/25 02:37 11/15/25 02:32 11/15/25 02:27 11/15/25 02:24 11/15/25 02:22 11/15/25 02:17 11/15/25 02:12 11/15/25 02:10 11/15/25 02:10 11/15/25 02:07 11/15/25 02:02 11/15/25 02:00 11/15/25 02:00 11/15/25 01:57 11/15/25 01:54 11/15/25 01:52 11/15/25 01:47 11/15/25 01:42 11/15/25 01:39 11/15/25 01:37 11/15/25 01:32 11/15/25 01:30 11/15/25 01:30 11/15/25 01:27 11/15/25 01:25 11/15/25 01:22 11/15/25 01:17 11/15/25 01:12 11/15/25 01:09 11/15/25 01:07 11/15/25 01:02 11/15/25 01:00 11/15/25 01:00 11/15/25 00:57 11/15/25 00:54 11/15/25 00:52 11/15/25 00:47 11/15/25 00:45 11/15/25 00:45 11/15/25 00:42 11/15/25 00:41 11/15/25 00:37 11/15/25 00:32 11/15/25 00:30 11/15/25 00:30 11/15/25 00:27 11/15/25 00:24 11/15/25 00:22 11/15/25 00:17 11/15/25 00:12 11/15/25 00:09 11/15/25 00:07 11/15/25 00:02 11/15/25 00:00 11/15/25 00:00 11/14/25 23:57 11/14/25 23:54 11/14/25 23:52 11/14/25 23:47 11/14/25 23:42 11/14/25 23:39 11/14/25 23:37 11/14/25 23:32 11/14/25 23:30 11/14/25 23:30 11/14/25 23:27 11/14/25 23:25 11/14/25 23:22 11/14/25 23:17 11/14/25 23:12 11/14/25 23:11 11/14/25 23:07 11/14/25 23:02 11/14/25 23:00 11/14/25 23:00 11/14/25 22:57 11/14/25 22:56 11/14/25 22:52 11/14/25 22:47 11/14/25 22:42 11/14/25 22:40 11/14/25 22:37 11/14/25 22:32 11/14/25 22:30 11/14/25 22:30 11/14/25 22:27 11/14/25 22:25 11/14/25 22:22 11/14/25 22:17 11/14/25 22:12 11/14/25 22:09 11/14/25 22:07 11/14/25 22:02 11/14/25 22:00 11/14/25 22:00 11/14/25 21:57 11/14/25 21:55 11/14/25 21:52 11/14/25 21:47 11/14/25 21:42 11/14/25 21:39 11/14/25 21:37 11/14/25 21:32 11/14/25 21:30 11/14/25 21:30 11/14/25 21:27 11/14/25 21:25 11/14/25 21:22 11/14/25 21:17 11/14/25 21:12 11/14/25 21:09 11/14/25 21:07 11/14/25 21:03 11/14/25 21:03 11/14/25 21:02 11/14/25 21:00 11/14/25 21:00 11/14/25 20:57 11/14/25 20:55 11/14/25 20:52 11/14/25 20:47 11/14/25 20:42 11/14/25 20:40 11/14/25 20:37 11/14/25 20:32 11/14/25 20:30 11/14/25 20:30 11/14/25 20:27 11/14/25 20:26 11/14/25 20:22 11/14/25 20:17 11/14/25 20:12 11/14/25 20:10 11/14/25 20:07 11/14/25 20:02 11/14/25 20:00 11/14/25 20:00 11/14/25 19:57 11/14/25 19:56 11/14/25 19:52 11/14/25 19:47 11/14/25 19:42 11/14/25 19:39 11/14/25 19:37 11/14/25 19:32 11/14/25 19:30 11/14/25 19:30 11/14/25 19:27 11/14/25 19:24 11/14/25 19:22 11/14/25 19:17 11/14/25 19:12 11/14/25 19:10 11/14/25 19:10 11/14/25 19:07 11/14/25 19:02 11/14/25 18:57 11/14/25 18:54 11/14/25 18:52 11/14/25 18:47 11/14/25 18:42 11/14/25 18:40 11/14/25 18:37 11/14/25 18:32 11/14/25 18:27 11/14/25 18:25 11/14/25 18:22 11/14/25 18:21 11/14/25 18:17 11/14/25 18:12 11/14/25 18:10 11/14/25 18:07 11/14/25 18:02 11/14/25 17:57 11/14/25 17:52 11/14/25 17:50 11/14/25 17:48 11/14/25 17:47 11/14/25 17:46 11/14/25 17:44 11/14/25 17:42 11/14/25 17:42 11/14/25 17:42 11/14/25 17:40 11/14/25 17:38 11/14/25 17:37 11/14/25 17:36 11/14/25 17:34 11/14/25 17:33 11/14/25 17:32 11/14/25 17:30 11/14/25 17:28 11/14/25 17:27 11/14/25 17:22 11/14/25 17:17 11/14/25 17:12 11/14/25 17:11 11/14/25 17:06 11/14/25 17:05 11/14/25 16:05 11/14/25 16:05 Pain Intensity Abdomen: Pain Intensity: 4 Notes Mental Status: alert / awake / arousable Patient Amnestic to Procedure: Yes Nausea / Vomiting: adequately controlled Pain: adequately controlled Airway Patency, RR, SpO2: stable & adequate BP & HR: stable & adequate Hydration State: stable & adequate Neuraxial Anesthesia: was administered and sensory block is resolving Anesthetic Complications: no major complications apparent
[2025-11-15] MEDS: SIMETHICONE 80 MG CHEW PO SCH (17:11)
[2025-11-15] MEDS: ACETAMINOPHEN 325 MG TAB PO SCH (17:12)
[2025-11-15] MEDS: MoRPHine SULFATE PF 1 MG/ML 10 ML AMP/VIAL INT SPINAL ONE (19:14)
[2025-11-15] MEDS: SODIUM CHLORIDE 0.9% 1,000 ML IV SCH (19:14)
[2025-11-15] MEDS: DOCUSATE SODIUM 100 MG CAP PO SCH (23:40)
[2025-11-15] MEDS: NALOXONE HCL 0.08 MG in SYRINGE 1.8 ML IV PRN (23:59)
[2025-11-16] MEDS ORDERED: PROMETHAZINE 12.5 MG/50.5 ML BAG IV PRN (04:17)
[2025-11-16] MEDS ORDERED: HYDROmorphone INJ 0.5 MG/0.5 ML SYR IV PRN (04:17)
[2025-11-16] MEDS ORDERED: diphenhydrAMINE 50 MG/ML VIAL IV PRN (04:17)
[2025-11-16] MEDS ORDERED: ONDANSETRON INJ 2 MG/ML 2 ML VIAL IV PRN (04:17)
[2025-11-16] MEDS ORDERED: diphenhydrAMINE Capsule 25 MG CAP PO PRN (04:17)
[2025-11-16] MEDS ORDERED: CITRIC ACID/SODIUM CITRATE 15 ML UDC PO SCH (06:00)
[2025-11-16 06:32] LABS: Hematocrit (blood only) 26.5 % (37.0-47.0); Hemoglobin 9.1 g/dL (12.0-16.0); Immature Granulocytes # (auto) 0.15 K/uL (0.01-0.20); Immature Granulocytes % (auto) 0.8 %; Mean Corpuscular Hemoglobin 30.8 pg (25.0-34.0); Mean Corpuscular Volume 89.8 fL (80.0-100.0); Platelet Count 150 K/uL (130-400); RDW Standard Deviation 45.6 fL (36.4-46.3); Red Blood Count 2.95 M/uL (4.20-5.40); White Blood Count 18.15 K/ul (4.8-10.8)
--- NOTE | 2025-11-16 07:15 | Obstetrical Progress Note ---
Date of Service November 16, 2025 Assessment & Plan (1) state: Routine ppx care, doing well. Subjective Ambulation: ambulating normally Voiding: no voiding problems Passing Gas:: Yes Diet Tolerance:: regular diet Lochia:: Small Feeding Type:: breast feeding Physical Exam Constitutional WD/WN, vitals as above Eyes PERRL, conjunctivae normal, anicteric sclerae Neck normal visual inspection Respiratory normal respiratory effort and able to speak in complete sentences; no respiratory distress and no labored breathing Cardiovascular Rate/Rhythm: regular rate and regular rhythm Extremities: no edema Chest (Breasts) Chest: normal inspection of chest Gastrointestinal (Abdomen) Inspection/Auscultation: abdomen normal to inspection Soft, postgravid C/D/I with glue Psychiatric A+Ox3, euthymic affect Genitourinary OB Exam Abdomen: + fundal height Fundus: + firm and + relation to umbilicus (fundus just below umbilicus); not tender Results & Data Vital Signs (Past 12 Hours) Vital Signs Temp Pulse Resp BP Pulse Ox O2 Del Method 11/16/25 03:25 98.2 F 81 18 144/83 H 99 Room Air 11/16/25 02:00 16 100 11/16/25 01:00 16 98 11/15/25 23:35 98.1 F 92 H 16 121/78 97 Room Air 11/15/25 23:00 18 98 11/15/25 22:00 16 100 11/15/25 19:40 97.9 F 87 16 125/82 97 Room Air
[2025-11-16] MEDS ORDERED: KETOROLAC 30 MG/ML VIAL IV PRN (10:49)
[2025-11-16] MEDS: IBUPROFEN 600 MG TAB PO SCH (10:51)
[2025-11-16] MEDS: PRENATAL VITAMIN 1 TAB PO SCH (10:52)
[2025-11-16] MEDS: FERROUS SULFATE 325 MG TAB PO SCH (10:52)
[2025-11-16 19:31] VITALS: O2SAT 97
[2025-11-16 23:45] VITALS: TEMP 97.7
[2025-11-17 06:26] LABS: Hematocrit (blood only) 27.1 % (37.0-47.0); Hemoglobin 9.4 g/dL (12.0-16.0)
--- NOTE | 2025-11-17 07:03 | Obstetrical Progress Note ---
Date of Service November 17, 2025 Assessment & Plan (1) state: Plan Doing well s/p c/s. Would like d/c today. Instructions reviewed. f/u in 6 weeks in the office with delivering doctor. Day #:: 2 Subjective Ambulation: ambulating normally Voiding: no voiding problems Passing Gas:: Yes Diet Tolerance:: regular diet Lochia:: Small Feeding Type:: breast feeding Pain controlled Physical Exam Constitutional WD/WN, vitals as above Respiratory normal respiratory effort, lungs clear to auscultation Cardiovascular RRR, no murmur, no edema Extremities: + edema (tr); no calf tenderness Gastrointestinal (Abdomen) soft, nt, nd, ff/appro tender 1 below u incision c/d/i Psychiatric A+Ox3, euthymic affect Results & Data Vital Signs (Past 12 Hours) Vital Signs Temp Pulse Resp BP Pulse Ox O2 Del Method 11/16/25 23:44 36.5 C 83 16 133/84 97 Room Air 11/16/25 19:30 36.9 C 83 18 127/71 97 Room Air
[2025-11-17 07:38] VITALS: BP 108/74; PULSE 76; RESP 18
[2025-11-17] MEDS: IBUPROFEN 600 MG TAB PO PRN (11:06)
[2025-11-17] MEDS ORDERED: ACETAMINOPHEN 325 MG TAB PO PRN (16:49)
== END 2025-11-17 11:45 | disposition home or self-care (01) | DRG 788 ==
LOC: 4S1 07:42 → 4E2 11-15 15:10